=== PATIENT | female | born 1970 | race Caucasian/White ===

== ENCOUNTER → 2023-11-11 | Outpatient (CLI) | payer BC ==
[2023-11-11 11:56] LABS: BASOPHILS ABSOLUTE AUTO 0.05 K/mm3 (0.00-0.23); BASOPHILS PERCENT AUTO 1 % (0-2); EOSINOPHILS PERCENT AUTO 1 % (0-6); Hematocrit 35.2 % (33.0-51.0); Hemoglobin 11.4 g/dL (11.5-16.0); IMMATURE GRAN ABSOLUTE AUTO 0.01 K/mm3 (0.00-0.10); IMMATURE GRAN PERCENT AUTO 0 % (0-1); LYMPHOCYTES ABSOLUTE AUTO 1.42 K/mm3 (0.84-5.20); LYMPHOCYTES PERCENT AUTO 19 % (21-46); MONOCYTES ABSOLUTE AUTO 0.85 K/mm3 (0.16-1.47); MONOCYTES PERCENT AUTO 11 % (4-13); Mean Corpuscular HGB 28.8 pg (26.0-34.0); Mean Corpuscular HGB Conc 32.4 g/dL (31.5-36.5); Mean Corpuscular Volume 89 fL (80-100); Mean Platelet Volume 9.7 fL (9.1-12.4); NEUTROPHILS ABSOLUTE AUTO 5.05 K/mm3 (1.96-9.15); NEUTROPHILS PERCENT AUTO 68 % (41-73); Platelet Count 241 K/mm3 (150-400); RDW Coefficient Variation 12.3 % (11.7-14.2); RDW Standard Deviation 39.9 fL (35.1-46.3); Red Blood Cell Count 3.96 M/mm3 (3.80-5.20); White Blood Cell Count 7.48 K/mm3 (4.00-11.30)
[2023-11-11 12:08] LABS: Albumin/Globulin Ratio 0.8 (0.8-1.8); Bilirubin, Total 0.5 mg/dL (0.1-1.0); Bun/Creatinine Ratio 13.6 (12.0-20.0); Calcium, Blood 8.7 mg/dL (8.5-10.1); Creatinine, Blood 1.1 mg/dL (0.40-1.00); Globulin, Blood 3.8 g/dL (2.2-4.0); Total Protein, Blood 6.8 g/dL (6.4-8.2)
== END | disposition home or self-care (01) ==
LOC: LAB 11:52 → LAB SHORT 11:52
PROVIDERS: Family Medicine
DX: R06.09 Other forms of dyspnea (principal); I10 Essential (primary) hypertension
CPT/HCPCS: 80053; 83880; 84484; 85025; 85379

== ENCOUNTER 2023-11-16 08:36 | Day surgery (SDC) | payer BC ==
[2023-11-16] MEDS ORDERED: Lidocaine HCl 4% Cream 5 GM ONE (12:35)
== END 2023-11-17 00:49 | disposition home or self-care (01) ==
LOC: WOUND 08:36
DX: L03.116 Cellulitis of left lower limb (principal); I10 Essential (primary) hypertension
CPT/HCPCS: A6213; A9270; G0463

== ENCOUNTER 2023-11-23 01:04 | Day surgery (SDC) | payer BC | END 2023-11-24 22:38 | disposition home or self-care (01) | LOC: WOUND 01:04 | DX: L97.822 Non-pressure chronic ulcer of other part of left lower leg with fat layer exposed (principal); I73.9 Peripheral vascular disease, unspecified; I87.2 Venous insufficiency (chronic) (peripheral); L03.116 Cellulitis of left lower limb | CPT/HCPCS: A6213; G0463 ==

== ENCOUNTER 2023-12-07 01:58 | Day surgery (SDC) | payer BC ==
[2023-12-07] MEDS ORDERED: Lidocaine HCl 4% Cream 5 GM ONE (15:07)
== END 2023-12-07 23:00 | disposition home or self-care (01) ==
LOC: WOUND 01:58
DX: L97.822 Non-pressure chronic ulcer of other part of left lower leg with fat layer exposed (principal); L03.116 Cellulitis of left lower limb; I73.9 Peripheral vascular disease, unspecified; I87.2 Venous insufficiency (chronic) (peripheral); I10 Essential (primary) hypertension
CPT/HCPCS: A9270

== ENCOUNTER 2023-12-10 01:15 | Day surgery (SDC) | payer BC | END 2023-12-10 23:44 | disposition home or self-care (01) | LOC: WOUND 01:15 | DX: L97.822 Non-pressure chronic ulcer of other part of left lower leg with fat layer exposed (principal); L03.90 Cellulitis, unspecified; I73.9 Peripheral vascular disease, unspecified; I87.2 Venous insufficiency (chronic) (peripheral) ==

== ENCOUNTER 2023-12-21 04:18 | Day surgery (SDC) | payer BC ==
[2023-12-21] MEDS ORDERED: Lidocaine HCl 4% Cream 5 GM ONE (07:57)
== END 2023-12-21 23:00 ==
LOC: WOUND 04:18
DX: L97.822 Non-pressure chronic ulcer of other part of left lower leg with fat layer exposed (principal); L03.116 Cellulitis of left lower limb; I73.9 Peripheral vascular disease, unspecified; I87.2 Venous insufficiency (chronic) (peripheral); I10 Essential (primary) hypertension
CPT/HCPCS: A9270

== ENCOUNTER 2023-12-28 04:12 | Day surgery (SDC) | payer BC ==
[2023-12-28] MEDS ORDERED: Silver Nitr/Potassium Nitrate 1 EA APPL ONE (08:14)
== END 2023-12-29 23:05 | disposition home or self-care (01) ==
LOC: WOUND 04:12
DX: S81.802D Unspecified open wound, left lower leg, subsequent encounter (principal); L03.116 Cellulitis of left lower limb; I73.9 Peripheral vascular disease, unspecified; I87.2 Venous insufficiency (chronic) (peripheral); I10 Essential (primary) hypertension; Z79.01 Long term (current) use of anticoagulants; Z86.711 Personal history of pulmonary embolism
CPT/HCPCS: A9270

== ENCOUNTER 2024-01-04 01:30 | Day surgery (SDC) | payer BC ==
[2024-01-04] MEDS ORDERED: Lidocaine HCl 4% Cream 5 GM ONE (08:11)
== END 2024-01-04 23:00 | disposition home or self-care (01) ==
LOC: WOUND 01:30
DX: L97.822 Non-pressure chronic ulcer of other part of left lower leg with fat layer exposed (principal); L03.90 Cellulitis, unspecified; I73.9 Peripheral vascular disease, unspecified; I87.2 Venous insufficiency (chronic) (peripheral)
CPT/HCPCS: 87071; 87075; 87077; 87186; 87205; A9270

== ENCOUNTER 2024-01-06 11:32 | Day surgery (SDC) | payer BC | END 2024-01-06 22:53 | disposition home or self-care (01) | LOC: WOUND 11:32 | DX: L97.822 Non-pressure chronic ulcer of other part of left lower leg with fat layer exposed (principal); L03.90 Cellulitis, unspecified; I73.9 Peripheral vascular disease, unspecified; I87.2 Venous insufficiency (chronic) (peripheral); I10 Essential (primary) hypertension ==

== ENCOUNTER 2024-01-11 02:37 | Day surgery (SDC) | payer BC ==
[2024-01-11] MEDS ORDERED: Lidocaine HCl 4% Cream 5 GM ONE (11:39)
== END 2024-01-11 23:00 ==
LOC: WOUND 02:37
DX: L03.116 Cellulitis of left lower limb (principal); L97.822 Non-pressure chronic ulcer of other part of left lower leg with fat layer exposed; I73.9 Peripheral vascular disease, unspecified; I87.2 Venous insufficiency (chronic) (peripheral); I10 Essential (primary) hypertension
CPT/HCPCS: A9270

== ENCOUNTER 2024-01-18 02:24 | Day surgery (SDC) | payer BC | END 2024-01-18 23:00 | disposition home or self-care (01) | LOC: WOUND 02:24 | DX: L03.116 Cellulitis of left lower limb (principal); I73.9 Peripheral vascular disease, unspecified; I87.2 Venous insufficiency (chronic) (peripheral); I10 Essential (primary) hypertension; Z79.01 Long term (current) use of anticoagulants; Z86.711 Personal history of pulmonary embolism ==

== ENCOUNTER 2024-01-25 01:58 | Day surgery (SDC) | payer BC | END 2024-01-25 23:08 | disposition home or self-care (01) | LOC: WOUND 01:58 | DX: L03.116 Cellulitis of left lower limb (principal); I87.2 Venous insufficiency (chronic) (peripheral); I10 Essential (primary) hypertension; I73.9 Peripheral vascular disease, unspecified; Z79.01 Long term (current) use of anticoagulants; Z86.711 Personal history of pulmonary embolism ==

== ENCOUNTER 2024-02-01 00:50 | Day surgery (SDC) | payer BC | END 2024-02-01 22:54 | disposition home or self-care (01) | LOC: WOUND 00:50 | DX: L03.116 Cellulitis of left lower limb (principal); I87.2 Venous insufficiency (chronic) (peripheral); I73.9 Peripheral vascular disease, unspecified; I10 Essential (primary) hypertension; Z86.711 Personal history of pulmonary embolism; Z79.01 Long term (current) use of anticoagulants ==

== ENCOUNTER 2024-02-08 03:37 | Day surgery (SDC) | payer BC | END 2024-02-08 23:00 | disposition home or self-care (01) | LOC: WOUND 03:37 | DX: L03.116 Cellulitis of left lower limb (principal); I87.2 Venous insufficiency (chronic) (peripheral); I73.9 Peripheral vascular disease, unspecified; I10 Essential (primary) hypertension; Z79.01 Long term (current) use of anticoagulants; Z86.711 Personal history of pulmonary embolism ==

== ENCOUNTER 2024-02-22 02:27 | Day surgery (SDC) | payer BC | END 2024-02-22 23:02 | disposition home or self-care (01) | LOC: WOUND 02:27 | DX: L03.116 Cellulitis of left lower limb (principal); I73.9 Peripheral vascular disease, unspecified; I87.2 Venous insufficiency (chronic) (peripheral) ==

== ENCOUNTER 2024-02-29 00:11 | Day surgery (SDC) | payer BC | END 2024-02-29 23:00 | disposition home or self-care (01) | LOC: WOUND 00:11 | DX: L97.822 Non-pressure chronic ulcer of other part of left lower leg with fat layer exposed (principal); L03.90 Cellulitis, unspecified; I73.9 Peripheral vascular disease, unspecified; I87.2 Venous insufficiency (chronic) (peripheral) ==

== ENCOUNTER 2024-03-07 04:25 | Day surgery (SDC) | payer BC | END 2024-03-07 23:51 | disposition home or self-care (01) | LOC: WOUND 04:25 | DX: L03.116 Cellulitis of left lower limb (principal); I87.2 Venous insufficiency (chronic) (peripheral); I10 Essential (primary) hypertension; Z86.711 Personal history of pulmonary embolism; Z79.01 Long term (current) use of anticoagulants ==

== ENCOUNTER 2024-03-14 02:57 | Day surgery (SDC) | payer BC | END 2024-03-14 23:00 | disposition home or self-care (01) | LOC: WOUND 02:57 | DX: L03.116 Cellulitis of left lower limb (principal); I10 Essential (primary) hypertension; L97.822 Non-pressure chronic ulcer of other part of left lower leg with fat layer exposed; I73.9 Peripheral vascular disease, unspecified; I87.2 Venous insufficiency (chronic) (peripheral) ==

== ENCOUNTER 2024-03-21 04:32 | Day surgery (SDC) | payer BC | END 2024-03-21 23:30 | disposition home or self-care (01) | LOC: WOUND 04:32 | DX: L97.822 Non-pressure chronic ulcer of other part of left lower leg with fat layer exposed (principal); L03.116 Cellulitis of left lower limb; I73.9 Peripheral vascular disease, unspecified; I87.2 Venous insufficiency (chronic) (peripheral); I10 Essential (primary) hypertension; Z79.01 Long term (current) use of anticoagulants ==

== ENCOUNTER 2024-03-28 03:00 | Day surgery (SDC) | payer BC | END 2024-03-28 23:00 | disposition home or self-care (01) | LOC: WOUND 03:00 | DX: L97.822 Non-pressure chronic ulcer of other part of left lower leg with fat layer exposed (principal); L03.116 Cellulitis of left lower limb; I73.9 Peripheral vascular disease, unspecified; I87.2 Venous insufficiency (chronic) (peripheral); I10 Essential (primary) hypertension ==

== ENCOUNTER 2024-04-04 03:05 | Day surgery (SDC) | payer BC | END 2024-04-04 23:00 | disposition home or self-care (01) | LOC: WOUND 03:05 | DX: L03.116 Cellulitis of left lower limb (principal); I10 Essential (primary) hypertension; I87.2 Venous insufficiency (chronic) (peripheral); I73.9 Peripheral vascular disease, unspecified; Z86.711 Personal history of pulmonary embolism; Z79.01 Long term (current) use of anticoagulants ==

== ENCOUNTER 2024-04-11 04:20 | Day surgery (SDC) | payer BC | END 2024-04-11 23:00 | disposition home or self-care (01) | LOC: WOUND 04:20 | DX: L03.116 Cellulitis of left lower limb (principal); I73.9 Peripheral vascular disease, unspecified; I87.2 Venous insufficiency (chronic) (peripheral); I10 Essential (primary) hypertension ==

== ENCOUNTER 2024-04-18 03:58 | Day surgery (SDC) | payer BC | END 2024-04-18 23:00 | disposition home or self-care (01) | LOC: WOUND 03:58 | DX: L03.116 Cellulitis of left lower limb (principal); I10 Essential (primary) hypertension; I73.9 Peripheral vascular disease, unspecified; I87.2 Venous insufficiency (chronic) (peripheral); Z79.01 Long term (current) use of anticoagulants; Z86.711 Personal history of pulmonary embolism ==

== ENCOUNTER 2024-04-27 03:02 | Day surgery (SDC) | payer BC | END 2024-04-27 23:05 | disposition home or self-care (01) | LOC: WOUND 03:02 | DX: L03.116 Cellulitis of left lower limb (principal); I73.9 Peripheral vascular disease, unspecified; I87.2 Venous insufficiency (chronic) (peripheral); I10 Essential (primary) hypertension; Z79.01 Long term (current) use of anticoagulants; Z86.711 Personal history of pulmonary embolism ==

== ENCOUNTER 2024-05-04 05:55 | Day surgery (SDC) | payer BC | END 2024-05-04 23:00 | disposition home or self-care (01) | LOC: WOUND 05:55 | DX: L03.116 Cellulitis of left lower limb (principal); I10 Essential (primary) hypertension; L97.822 Non-pressure chronic ulcer of other part of left lower leg with fat layer exposed; L03.90 Cellulitis, unspecified; I73.9 Peripheral vascular disease, unspecified; I87.2 Venous insufficiency (chronic) (peripheral) | CPT/HCPCS: G0463 ==

== ENCOUNTER 2024-06-09 03:58 | Day surgery (SDC) | payer BC | END 2024-06-09 23:00 | disposition home or self-care (01) | LOC: WOUND 03:58 | DX: L03.116 Cellulitis of left lower limb (principal); I10 Essential (primary) hypertension; L97.822 Non-pressure chronic ulcer of other part of left lower leg with fat layer exposed; I73.9 Peripheral vascular disease, unspecified; I87.2 Venous insufficiency (chronic) (peripheral) | CPT/HCPCS: G0463 ==

== ENCOUNTER 2024-06-16 00:37 | Day surgery (SDC) | payer BC | END 2024-06-16 23:00 | disposition home or self-care (01) | LOC: WOUND 00:37 | DX: L97.822 Non-pressure chronic ulcer of other part of left lower leg with fat layer exposed (principal); L03.90 Cellulitis, unspecified; I73.9 Peripheral vascular disease, unspecified; I87.2 Venous insufficiency (chronic) (peripheral); I10 Essential (primary) hypertension ==

== ENCOUNTER 2024-06-22 01:40 | Day surgery (SDC) | payer BC | END 2024-06-22 23:00 | disposition home or self-care (01) | LOC: WOUND 01:40 | DX: L97.822 Non-pressure chronic ulcer of other part of left lower leg with fat layer exposed (principal); L03.116 Cellulitis of left lower limb; I73.9 Peripheral vascular disease, unspecified; I87.2 Venous insufficiency (chronic) (peripheral); I10 Essential (primary) hypertension ==

== ENCOUNTER 2024-06-28 07:52 | Day surgery (SDC) | payer BC | END 2024-06-28 23:00 | disposition home or self-care (01) | LOC: WOUND 07:52 → ATC 08:00 → WOUND 23:00 | DX: L03.116 Cellulitis of left lower limb (principal); I87.2 Venous insufficiency (chronic) (peripheral); I73.9 Peripheral vascular disease, unspecified; I10 Essential (primary) hypertension ==

== ENCOUNTER → 2024-07-06 | Day surgery (SDC) | payer BC | LOC: WOUND 02:52 | DX: L97.822 Non-pressure chronic ulcer of other part of left lower leg with fat layer exposed (principal); I87.2 Venous insufficiency (chronic) (peripheral); I73.9 Peripheral vascular disease, unspecified; I10 Essential (primary) hypertension; Z86.711 Personal history of pulmonary embolism; Z79.01 Long term (current) use of anticoagulants ==

== ENCOUNTER 2024-07-13 01:48 | Day surgery (SDC) | payer BC | END 2024-07-13 23:00 | disposition home or self-care (01) | LOC: WOUND 01:48 | DX: L97.822 Non-pressure chronic ulcer of other part of left lower leg with fat layer exposed (principal); L03.90 Cellulitis, unspecified; I73.9 Peripheral vascular disease, unspecified; I87.2 Venous insufficiency (chronic) (peripheral); I10 Essential (primary) hypertension ==

== ENCOUNTER 2024-07-20 01:08 | Day surgery (SDC) | payer BC | END 2024-07-20 23:00 | LOC: WOUND 01:08 | DX: L97.822 Non-pressure chronic ulcer of other part of left lower leg with fat layer exposed (principal); L03.90 Cellulitis, unspecified; I73.9 Peripheral vascular disease, unspecified; I87.2 Venous insufficiency (chronic) (peripheral); I10 Essential (primary) hypertension; I26.99 Other pulmonary embolism without acute cor pulmonale; Z79.01 Long term (current) use of anticoagulants ==

== ENCOUNTER → 2024-07-26 | Day surgery (SDC) | payer BC | LOC: WOUND 03:28 | DX: L97.822 Non-pressure chronic ulcer of other part of left lower leg with fat layer exposed (principal); L03.90 Cellulitis, unspecified; I73.9 Peripheral vascular disease, unspecified; I87.2 Venous insufficiency (chronic) (peripheral); I10 Essential (primary) hypertension; Z79.01 Long term (current) use of anticoagulants ==

== ENCOUNTER 2024-08-03 02:15 | Day surgery (SDC) | payer BC | END 2024-08-03 23:00 | disposition home or self-care (01) | LOC: WOUND 02:15 | DX: I87.2 Venous insufficiency (chronic) (peripheral) (principal); L03.90 Cellulitis, unspecified; I73.9 Peripheral vascular disease, unspecified; I10 Essential (primary) hypertension; Z86.711 Personal history of pulmonary embolism; Z87.828 Personal history of other (healed) physical injury and trauma; Z79.01 Long term (current) use of anticoagulants | CPT/HCPCS: G0463 ==